=== PATIENT | female | born 1930 | race Caucasian/White ===

== ENCOUNTER 2018-07-24 02:34 | Day surgery (SDC) | payer MEDICARE, OTHER ==
[2018-07-22 15:52] VITALS: BP 152/91
--- NOTE | 2018-07-22 16:10 | PCM.EKG ---
[facility] Test Date: 2018-07-22 Test Time: 16:10:05 Pat Name: MINA GURROLA Department: Room: Gender: F Telecasting Technician: AWLVN : [id number] Requested By: MERCY VALDES Order Number: [id number] Reading MD: Shalom Lyon Measurements Intervals [place] Rate: 75 P: 53 UT: 166 QRS: -33 QRSD: 94 T: 62 QT: 376 QTc: 419 Interpretive Statements Normal sinus rhythm Left axis deviation Abnormal ECG No previous ECG available for comparison Electronically Signed On 07-23-2018 11:23:07 CDT by Shalom Lyon Please click the below link to view image of tracing.
[2018-07-22 16:39] LABS: BASOPHIL % 0.3 % (0.0-0.2); EOSINOPHIL # 0.1 10^3/uL (0.0-0.2); EOSINOPHIL % 0.8 % (0.0-5.0); HEMOGLOBIN 15.1 g/dL (12.0-15.0); LYMPHOCYTES # 4.8 10^3/uL (1.0-4.8); MEAN CELL HGB 31.6 pg (26-34); MEAN CELL HGB CONCENTRATION 33.9 g/dL (33-37); MEAN CORP VOLUME 93.3 fL (78-100); MEAN PLATELET VOLUME 12.5 fL (7.8-11.0); MONOCYTES # 0.8 10^3/uL (0.3-0.8); NEUTROPHILS % 50.7 % (41.0-85.0); RED CELL DISTRIBUTION WIDTH 13.5 % (11.5-14.5); WHITE BLOOD CELL 11.8 10^3/uL (4.5-11.0)
[2018-07-22 16:57] LABS: CALCIUM 9.7 mg/dL (8.4-10.5); CARBON DIOXIDE 28.8 mmol/L (20.0-32)
[2018-07-24] VITALS (8 sets, daily range): BP systolic 115–143; BP diastolic 55–87
[~2018-07-24] VITALS: Ht 157.5 cm; Wt 59.0 kg
[~2018-07-24 02:34] MED LIST: AMLO10TA6 PO; LEVO150T6 PO; LOSA50TA7 PO
[2018-07-24] MEDS ORDERED: NS 100ML 100 ML IV ONE ×2 (05:39→07:22)
[2018-07-24] MEDS ORDERED: ANCEF ONE (05:39)
[2018-07-24] MEDS ORDERED: LACTATED RINGERS 1,000 ML ONE ×2 (05:39→07:22)
[2018-07-24] MEDS ORDERED: LACTATED RINGERS 1,000 ML IV SCH (06:00)
[2018-07-24] MEDS ORDERED: SODIUM CHLORIDE IR ONE (06:52)
[2018-07-24] MEDS ORDERED: ZOFRAN ONE (07:21)
[2018-07-24] MEDS ORDERED: TORADOL ONE (07:21)
[2018-07-24] MEDS ORDERED: DECADRON ONE (07:21)
[2018-07-24] MEDS ORDERED: LIDOCAINE 2% VIAL ONE (07:22)
[2018-07-24] MEDS ORDERED: DIPRIVAN IV ONE (07:22)
[2018-07-24] MEDS ORDERED: SUBLIMAZE ONE (07:22)
[2018-07-24] MEDS ORDERED: DILAUDID ONE (07:22)
[2018-07-24] MEDS ORDERED: XYLOCAINE 2%-EPI 1:100,000 ONE (07:59)
[2018-07-24] MEDS ORDERED: EPHEDRINE SULFATE ONE (09:52)
[2018-07-24] MEDS ORDERED: NS 3000ML IRR IR ONE (09:53)
[2018-07-24] MEDS ORDERED: SUBLIMAZE IV PRN (10:00)
[2018-07-24] MEDS ORDERED: LACTATED RINGERS 1,000 ML SCH (10:00)
[2018-07-24] MEDS ORDERED: ZOFRAN IV PRN (10:00)
[2018-07-24] MEDS ORDERED: DILAUDID IV PRN (10:00)
[2018-07-24] MEDS ORDERED: TRAM-47 PO (10:01)
--- NOTE | 2018-07-24 10:46 | OPH ---
DATE OF SURGERY: 07/24/2018 PREOPERATIVE DIAGNOSES: 1. Subchondral fracture of the left medial tibial plateau 2. Left medial meniscal tear. POSTOPERATIVE DIAGNOSES: 1. Subchondral fracture of the left medial tibial plateau 2. Left medial meniscal tear. OPERATIVE PROCEDURES: 1. Arthroscopy of the left knee with internal fixation, medial tibial plateau fracture, arthroscopically assisted 2. Partial medial meniscectomy, left knee. SURGEON: Chris Pino MD ANESTHESIA: LMA. TOURNIQUET TIME: None. BLOOD LOSS: 10 mL. DESCRIPTION OF INDICATIONS: The patient is an 87-year-old female who had sudden onset of severe pain about the medial aspect of her left knee approximately 2-3 months ago. She continues to have pain and is no better despite therapy, bracing, cortisone injections and anti-inflammatories. The patient has full range of motion of the knee. She is specifically tender about the proximal medial tibial plateau. She has good medial and lateral stability. X-rays show some mild arthritic changes about the medial compartment; however, the MRI scan shows a subchondral fracture about the medial tibial plateau. She also has a medial meniscal tear. The patient was given different conservative versus surgical options. She wanted to proceed with internal fixation of the tibial plateau fracture and knee arthroscopy. DESCRIPTION OF PROCEDURE: The patient was placed on the operating table in the supine position. LMA anesthetic was induced without difficulty. The patient had the left thigh padded and a tourniquet was applied. Left lower extremity was then sterilely prepped and draped. Arthroscopy portals were made superolateral, anterolateral and anteromedial. Arthroscope was introduced through the anterolateral portal. The suprapatellar pouch was viewed. She had some hypertrophic synovitis. There was exposed subchondral bone about the femoral sulcus. Medial and lateral gutters were viewed. There were no loose bodies, no large osteophytes. Medial compartment was entered. She had some grade 2-3 chondromalacia about the medial femoral condyle. The medial compartment showed a parrot-beak type tear of the posterior horn of the medial meniscus. The patient had the shaver and upbiter introduced and a partial medial meniscectomy was performed with the shaver and an upbiter. The patient then had the intercondylar notch viewed. The anterior and posterior cruciate ligaments were normal. The knee was then placed in a [id number] position. The lateral compartment was viewed. She had good maintenance of the lateral meniscus with some minor arthritic changes about the lateral femoral condyle. The patient then had the arthroscopic equipment removed. Using the C-arm, we located the fracture location based on the MRI scan. The cannulated drill was then introduced from medial to lateral in the appropriate location of the proximal medial tibial plateau again based on the MRI findings. Once the position of the cannulated drill was felt to be satisfactory, then the calcium pyrophosphate was then injected in all planes. Once this cement had hardened, then the cannulated drill was removed. The arthroscope was placed back into the medial compartment of the knee. There was no extravasation of the calcium pyrophosphate. The patient then had the arthroscopic equipment removed from the knee. The portal tracts were closed with 3-0 Ethilon. A compressive dressing was applied and the patient was extubated in the operating room, sent to recovery in stable condition. Chris Pino MD DR: RISHABH/agatha JOB# [id number]
== END 2018-07-24 11:01 | disposition home or self-care (01) ==
LOC: SDC 02:34
PROVIDERS: ATTEND Orthopaedic Surgery
DX: S83.242A Other tear of medial meniscus, current injury, left knee, initial encounter (principal); S82.012A Displaced osteochondral fracture of left patella, initial encounter for closed fracture; X58.XXXA Exposure to other specified factors, initial encounter; Y93.89 Activity, other specified; Y92.89 Other specified places as the place of occurrence of the external cause; Y99.8 Other external cause status; M94.262 Chondromalacia, left knee; M17.12 Unilateral primary osteoarthritis, left knee; I10 Essential (primary) hypertension; Z90.49 Acquired absence of other specified parts of digestive tract; Z98.890 Other specified postprocedural states; Z72.89 Other problems related to lifestyle; Z79.899 Other long term (current) drug therapy; Z82.49 Family history of ischemic heart disease and other diseases of the circulatory system; Z82.5 Family history of asthma and other chronic lower respiratory diseases
CPT/HCPCS: 29855; 29881; 36415; 76000; 80053; 85025; 93005; A4217 ×2; J0690; J1100; J1885; J2001; J2405; J3010; J3490 ×2; J7050 ×2; J7120 ×2; C1713

== ENCOUNTER → 2019-03-11 | Outpatient (CLI) | payer MEDICARE, OTHER ==
[~2019-03-11] MED LIST changes: -AMLO10TA6 PO; +AMLO10TA8 PO; +LOSA50TA14 PO; -LOSA50TA7 PO; +TRAM-47 PO
== END | disposition home or self-care (01) ==
LOC: LAB 13:59
PROVIDERS: ATTEND Nurse Practitioner
DX: N39.0 Urinary tract infection, site not specified (principal)
CPT/HCPCS: 87077; 87086; 87186

== ENCOUNTER → 2019-04-06 | Outpatient (CLI) | payer MEDICARE, OTHER | END | disposition home or self-care (01) | LOC: LAB 09:55 | PROVIDERS: ATTEND Pediatrics | DX: E03.9 Hypothyroidism, unspecified (principal); I10 Essential (primary) hypertension | CPT/HCPCS: 36415; 84439; 84443 ==

== ENCOUNTER → 2019-04-08 | Outpatient (CLI) | payer MEDICARE, OTHER ==
--- NOTE | 2019-04-09 12:01 | DIREP ---
PROCEDURE:Digital Screening Mammogram TECHNIQUE:MLO, CC, and XCCL digital images of each breast are provided. Computer Assisted Detection (CAD) was utilized. COMPARISON:[facility], , MAMMO BILATERAL SCREENING, 03/03/2018, 11:55 AM. INDICATIONS:SCREENING BREAST COMPOSITION:There are scattered areas of fibroglandular density. FINDINGS:There are no grouped microcalcifications, masses, or architectural distortions to suggest malignancy. There is no significant change as compared with the previous examination(s). IMPRESSION:No mammographic evidence of malignancy. RECOMMENDATIONS:Routine Screening Mammography per [employer] guidelines. OVERALL FINAL ASSESSMENT:BI-RADS 1 - Negative Mammogram Note: This facility participates in a mammography screening patient reminder system. Dictated by: Andrea Sifuentes M.D. on 04/09/2019 at 11:59 AM
== END | disposition home or self-care (01) ==
LOC: RAD 11:29
PROVIDERS: ATTEND Pediatrics
DX: Z12.31 Encounter for screening mammogram for malignant neoplasm of breast (principal)
CPT/HCPCS: 77067

== ENCOUNTER 2019-09-23 09:38 | Emergency (ER) | payer MEDICARE, OTHER ==
[~2019-09-23] VITALS: Ht 162.6 cm; Wt 56.7 kg
[2019-09-23 09:55] VITALS: BP 147/102
[2019-09-23 10:05] VITALS: BP 147/102
--- NOTE | 2019-09-23 10:32 | DIREP ---
PROCEDURE:XRAY WRIST MIN 3VW-LT COMPARISON:None. INDICATIONS:FALL X 24 HRS WITH LEFT WRIST PAIN. FINDINGS: BONES:Osteopenia. No fracture demonstrated. Osteoarthritic spurs of the head of the 1st and 3rd metacarpals, and the head of the proximal phalanx of the 1st digit. JOINTS:Irregularity of the scaphoid-trapezium and trapezium-1st metacarpal joints. Osteoarthritic spurs at the trapezium-1st metacarpal joint. Decreased joint space of the 2nd and 3rd MCP joints. Decreased joint space between the capitate and scaphoid/lunate. SOFT TISSUES:Crystal deposition in the triangular fibrocartilage and lunate-triquetrum joints. OTHER:No additional findings. CONCLUSION: 1. No fracture demonstrated. 2. 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 The trapezium-1st metacarpal joint is worst affected. Dictated by: Sophy Ramírez III, MD on 09/23/2019 at 10:26 AM
--- NOTE | 2019-09-23 10:34 | ER.PDOC ---
General Chief Complaint: Extremities Stated Complaint: LEFT WRIST INJURY Time seen by MD: 10:30 Source: patient Exam Limitations: no limitations History of Present Illness Initial Comments 88 Y/O F TO ED WITH HX TRIP AND FALL X 24 HRS AGO-- WITH PAIN TO LEFT WRIST ONLY. NO OTHER COMPLAINTS. NO SYNCOPAL SYMPTOMS, NO HEAD OR NECK PAIN, NO SPINE PAIN, NO CHEST PAIN. Occurred: yesterday Where: home Severity: moderate Associated Symptoms: numbness distally Modifying Factors: pain on movement Allergies: Coded Allergies: No Known Allergies (Unverified , 07/22/18) Home Meds Reported Medications Tramadol Hcl (ULTRAM) 50 Mg Tablet, 1-2 TAB PO Q6, #20 TAB 1 Refill 07/24/18 Losartan Potassium (LOSARTAN POTASSIUM) 50 Mg Tablet, 1 TAB PO DAILY, #30 TAB 5 Refills 07/23/18 Levothyroxine Sodium (LEVOTHYROXINE SODIUM) 150 Mcg Tablet, 1 TAB PO DAILY, #30 TAB 5 Refills 07/23/18 Amlodipine Besylate (AMLODIPINE BESYLATE) 10 Mg Tablet, 1 TAB PO DAILY, #30 TAB 5 Refills 07/23/18 Past Medical History Medical History: hypertension Surgical History: appendectomy, colon Family History Significant Family History: no pertinent family hx Social History Smoking: non-smoker Alcohol Use: heavy Drug Use: none Reviewed Nursing Reviewed: Vital Signs, Abn. Noted, Nursing Assessment Review of Systems Constitutional: no symptoms reported EENTM: no symptoms reported Respiratory: no symptoms reported Cardiovascular: no symptoms reported Gastrointestinal: no symptoms reported Genitourinary: no symptoms reported Musculoskeletal: joint pain Skin: no symptoms reported Psychiatric/Neurological: no symptoms reported Physical Exam General Appearance: Alert, No Apparent Distress Hand: nml inspection, non-tender Wrist: tenderness, swelling, limited ROM due to pain Forearm/Elbow: nml inspection, non-tender, nml ROM Arm/Shoulder: nml inspection, non-tender, nml ROM Neuro/Vasc/Tendon: sensation nml, motor nml, no vascular compromise, tendon function nml Skin: warm/dry Head/ENT: nml inspection, pharynx nml Neck/Back: nml inspection, non-tender Respiratory: chest non-tender, breath sounds nml CVS: heart sounds normal Abdomen: non-tender, no organomegaly Comments LEFT WRIST --TENDER TO PALP, NO SNUFF BOX PAIN, DISTAL--N/V/S INTACT, NL CAP REFILL, NO BROKEN SKIN. Results/Orders Results/Orders Orders - SAMEER NAYAK DO Xr Wrist Lt (09/23/19 10:02) Vital Signs Date Time Temp Pulse Resp B/P (MAP) Pulse Ox O2 Delivery O2 Flow Rate FiO2 09/23/19 10:05 97.7 82 20 147/102 (117) 96 Room Air 09/23/19 10:05 97.7 82 20 147/102 (117) 96 Room Air 09/23/19 09:55 97.7 80 20 96 09/23/19 09:55 97.7 82 20 Progress Progress AT [facility]---NO OTHER COMPLAINTS, DIFF DX IN DETAIL---FOLLOW UP WITH ORTHO IF NO BETTER. EKG/XRAY/CT/US XRAY Comments: WRIST LEFT ---NO FX. Departure Time of Disposition: 11:07 Disposition: 01 HOME, SELF-CARE Impression: Primary Impression: Left wrist sprain Condition: Stable Referrals: KATTY PARRY MD (PCP) PRIMARY CARE PROVIDER Comments TO ED IF NO BETTER OR WORSE, ICE X 5-7 DAYS --FOLLOW UP WITH DR VALDES NEEDED, ICE X 5-7 DAYS, VELCRO SPLINT. Duration or Time Spent with Pa: 15 MIN SAMEER NAYAK DO Sep 23, 2019 10:34
[2019-09-23 11:35] VITALS: BP 157/86
== END 2019-09-23 11:33 | disposition home or self-care (01) ==
LOC: ER 09:38
DX: S63.502A Unspecified sprain of left wrist, initial encounter (principal); Z79.899 Other long term (current) drug therapy; I10 Essential (primary) hypertension; W01.0XXA Fall on same level from slipping, tripping and stumbling without subsequent striking against object, initial encounter; Y93.89 Activity, other specified; Y92.098 Other place in other non-institutional residence as the place of occurrence of the external cause; Y99.8 Other external cause status
CPT/HCPCS: 29125; 99284; 73110-LT

== ENCOUNTER 2020-07-30 12:56 | Emergency (ER) | payer MEDICARE, OTHER ==
[~2020-07-30] VITALS: Ht 165.1 cm; Wt 56.7 kg
[~2020-07-30 12:56] MED LIST changes: +AMLO-170 PO; -AMLO10TA8 PO
[2020-07-30 13:06] VITALS: BP_SYST 155; BP_SYST 157; BP_DIAS 72
--- NOTE | 2020-07-30 13:16 | ER.PDOC ---
General Chief Complaint: Head Injury Stated Complaint: FALL,HEAD AND R WRIST INJURY Time seen by MD: 13:00 Source: patient Exam Limitations: no limitations History of Present Illness Initial Comments Pt had just left [facility] and was digging for her keys, not watching where she was going and tripped. She caught herself on an outstretched rt arm and then struck her face sustaining an injury to the distal radius area and sustaining abrasions to her mid forehead, nose and upper lip. She denies any nose bleed or trauma to her lip. No bleeding from her mucosal lip, teeth or gums. In fact, she doesn't c/o any pain to her face. Occurred: just prior to arrival Where: street Severity: mild Injuries/Pain Location: face, upper extremity Context: Tripped Loss of Consciousness: No Loss of Consciousness Modifying Factors: improves with movement Allergies: Coded Allergies: No Known Allergies (Unverified , 07/22/18) MEDS Reported Medications Tramadol Hcl (ULTRAM) 50 Mg Tablet, 1-2 TAB PO Q6, #20 TAB 1 Refill 07/24/18 Losartan Potassium (LOSARTAN POTASSIUM) 50 Mg Tablet, 1 TAB PO DAILY, #30 TAB 5 Refills 07/23/18 Levothyroxine Sodium (LEVOTHYROXINE SODIUM) 150 Mcg Tablet, 1 TAB PO DAILY, #30 TAB 5 Refills 07/23/18 Amlodipine Besylate (AMLODIPINE BESYLATE) 10 Mg Tablet, 1 TAB PO DAILY, #30 TAB 5 Refills 07/23/18 Past Medical History Medical History: hypertension, thyroid disease Surgical History: knee Social History Smoking: non-smoker Alcohol Use: sober Drug Use: none Review of Systems All Other Systems: Reviewed and Negative Physical Exam General Appearance: No Apparent Distress, WD/WN Head: Other (abrasions to her forehead, nose and upper lip. no lacerations, no bleeding) Eyes: bilateral eye normal inspection Ears, Nose, Mouth, Throat: Hearing Grossly Normal, No Evidence of ENT Injury, No Dental Injury Neck: Non-Tender, Normal Alignment, Nexus criteria neg, Normal Inspection Cardiovascular/Respiratory: Regular Rate, Rhythm, No M/R/G, Normal Peripheral Pulses, No JVD, Normal Breath Sounds, No Respiratory Distress Gastrointestinal: Normal Bowel Sounds, No Organomegaly, No Pulsatile Mass, Non Tender, Soft Extremities: Bony-Point Tenderness, Pain With Movement, Tenderness, Other (pain and soft tissue swelling over rt distal radius) Neurologic/Psychiatric: manager analytical II-XII NML as Tested, No Motor/Sensory Deficits, Alert, Normal Mood/Affect, Oriented x 3 Skin: Normal Color, Warm/Dry Tony Coma Score Best Eye Response: (4) Open Spontaneously Best Verbal Response: (5) Oriented Best Motor Response: (6) Obeys Commands Results/Orders Results/Orders Orders - ROMÁN DUBOIS MD Xr Wrist Rt (07/30/20 13:12) Tetanus-Diphtheria Toxoids/Pf (Tenivac S (07/30/20 13:30) Diph,Pertuss(Acell),Tet Vac/Pf (Adacel V (07/30/20 13:17) Diph,Pertuss(Acell),Tet Vac/Pf (Adacel V (07/30/20 13:30) Vital Signs Date Time Temp Pulse Resp B/P (MAP) Pulse Ox O2 Delivery O2 Flow Rate FiO2 07/30/20 13:09 18 07/30/20 13:06 97.7 83 18 99 07/30/20 13:06 97.7 80 16 155/72 (99) 96 Room Air 07/30/20 13:06 97.7 84 18 Administered Medications Medications (Trade) Dose Ordered Sig/Smith Route PRN Reason Start Time Stop Time Status Last Admin Dose Admin Diphtheria/ Tetanus/Acell Pertussis (Adacel Vial) 0.5 ml ONCE ONCE IM 07/30/20 13:30 07/30/20 13:31 DC 07/30/20 13:23 0.5 ML Progress Progress Pt has a mildly displaced distal radius fx. Will place in a sugar tong splint and sling. Referral to ortho. ER DEPART Departure Time of Disposition: 13:49 Disposition: 01 HOME, SELF-CARE Impression: Primary Impression: Fall Additional Impressions: Distal radius fracture, right Facial abrasion Condition: Stable Patient Instructions: Head Injury, Adult, [id number] Referrals: KATTY PARRY MD (PCP) PRIMARY CARE PROVIDER Comments Tramadol 50mg, 1 po tid prn pain, #30, no RF Duration or Time Spent with Pa: 15m Problem Qualifiers ROMÁN DUBOIS MD Jul 30, 2020 13:16
[2020-07-30] MEDS ORDERED: ADACEL VIAL IM ONE (13:17)
[2020-07-30] MEDS: ADACEL VIAL IM ONE (13:23)
[2020-07-30] MEDS ORDERED: TENIVAC SYRINGE IM ONE (13:30)
--- NOTE | 2020-07-30 13:58 | DIREP ---
PROCEDURE:XRAY WRIST MIN 3VW-RT COMPARISON:None. INDICATIONS:fall FINDINGS: BONES:There is a mildly displaced transverse fracture of the distal radius with mild impaction. No other fracture is seen. There is generalized osteopenia of the wrist. JOINTS:Degenerative changes are noted in the 1st carpometacarpal joint. SOFT TISSUES:Prominent soft tissue swelling is seen of the wrist. Calcification is seen in the TFC. OTHER:No additional findings. CONCLUSION:There is a mildly displaced and impacted transverse fracture of the distal radius. Dictated by: Michael Estrella M.D. on 07/30/2020 at 01:56 PM
[2020-07-30 14:17] VITALS: BP 143/65
== END 2020-07-30 14:15 | disposition home or self-care (01) ==
LOC: ER 12:56
DX: S52.501A Unspecified fracture of the lower end of right radius, initial encounter for closed fracture (principal); S00.511A Abrasion of lip, initial encounter; S00.31XA Abrasion of nose, initial encounter; I10 Essential (primary) hypertension; E07.9 Disorder of thyroid, unspecified; Z79.899 Other long term (current) drug therapy; W19.XXXA Unspecified fall, initial encounter; Y93.89 Activity, other specified; Y92.488 Other paved roadways as the place of occurrence of the external cause; Y99.8 Other external cause status
CPT/HCPCS: 29125; 90471; 90715; 96361; 99284; 73110-RT

== ENCOUNTER → 2021-02-01 | Outpatient (CLI) | payer MEDICARE, OTHER ==
--- NOTE | 2021-02-01 13:15 | DIREP ---
PROCEDURE:Digital Screening Mammogram TECHNIQUE:MLO, CC, and XCCL digital images of each breast are provided. Computer Assisted Detection (CAD) was utilized. COMPARISON:[facility], MAMMO BILATERAL SCREENING, 03/03/2018, 11:55 AM. [facility], MAMMO BILATERAL SCREENING, 03/03/2017, 03:38 PM. [facility], MAMMO BILATERAL SCREENING WITH CAD, 01/02/2016, 02:57 PM. [facility], MAMMO BILATERAL SCREENING, 12/05/2014, 04:00 PM. [facility], MAMMO BILATERAL SCREENING, 04/08/2019, 11:53 AM. INDICATIONS:SCREENING BREAST COMPOSITION:Scattered areas fibroglandular density. FINDINGS:There are no grouped microcalcifications, masses, or architectural distortions to suggest malignancy. There is no significant change as compared with the previous examination(s). IMPRESSION:No mammographic evidence of malignancy. RECOMMENDATIONS:Routine Screening Mammography per [employer] guidelines. OVERALL FINAL ASSESSMENT:BI-RADS 1 - Negative Mammogram Note: This facility participates in a mammography screening patient reminder system. Dictated by: Panda Henry M.D. on 02/01/2021 at 01:12 PM
== END | disposition home or self-care (01) ==
LOC: RAD 11:04
PROVIDERS: ATTEND Pediatrics
DX: Z12.31 Encounter for screening mammogram for malignant neoplasm of breast (principal)
CPT/HCPCS: 77067